=== PATIENT | female | born 1985 | race Caucasian/White ===

== ENCOUNTER 2017-08-18 20:50 | Emergency (ER) | payer MEDICAID ==
[2017-08-19 01:38] LABS: URINE PH (Dip) POC 5.5 (5.0-8.5)
[2017-08-19 01:38] LABS: URINE BLOOD (Dip) POC Trace-intact (NEGATIVE); URINE GLUCOSE (Dip) POC Negative (NEGATIVE); URINE KETONES (Dip) POC Negative (NEGATIVE); URINE LEUKOCYTE EST (Dip) POC Negative (NEGATIVE); URINE NITRITE (Dip) POC Negative (NEGATIVE); URINE TOTAL PROTEIN POC Negative (NEGATIVE)
[2017-08-19] MEDS: KETOROLAC 15 MG INJ IM (01:40)
[2017-08-19] MEDS: PANTOPRAZOLE (EC) 40 MG TAB PO (01:41)
[2017-08-19] MEDS: LIDOCAINE/MYLANTA 40 ML BTL PO (01:42)
[2017-08-19] MEDS: AL HYDROX/MG HYDROX/SIMETH 30 ML CUP PO (01:50)
[2017-08-19] MEDS: ACETAMINOPHEN 500 MG TAB PO (01:50)
== END 2017-08-19 03:15 | disposition home or self-care (01) ==
LOC: FTE 20:50
DX: R10.13 Epigastric pain (principal); M54.6 Pain in thoracic spine
CPT/HCPCS: 81003; 99283

== ENCOUNTER 2017-11-26 09:52 | Outpatient (CLI) | payer MEDICAID | END 2017-11-26 18:59 | disposition home or self-care (01) | LOC: OBT 09:52 → L-D 10:12 → OBT 18:59 | DX: O26.892 Other specified pregnancy related conditions, second trimester (principal); R10.2 Pelvic and perineal pain; Z3A.26 26 weeks gestation of pregnancy | CPT/HCPCS: 76817; 76818 ==

== ENCOUNTER 2018-02-17 10:55 | Inpatient (IN) | payer MEDICAID ==
[2018-02-17] MEDS ORDERED: AMPICILLIN 2 GM/NS (PMX) 100 ML (15:41)
[2018-02-17] MEDS: LACTATED RINGER'S 1,000 ML IV* (15:51)
[2018-02-17 15:52] LABS: ADD MAN DIFF? NO
[2018-02-17] MEDS: AMPICILLIN 2 GM/NS (PMX) 100 ML IV (15:52)
[2018-02-17 15:54] LABS: BASOPHILS % 0.4 % (0.0-2.0); EOSINOPHILS % 0.4 % (0.0-7.0); HEMATOCRIT 38.3 % (37.0-47.0); LYMPHOCYTES # 1.8 10^3/ul (0.8-2.9); LYMPHOCYTES % 16.5 % (15.0-51.0); MEAN CORPUSCULAR HGB CONC 33.9 g/dl (32.0-37.0); MEAN CORPUSCULAR VOLUME 91.4 fl (82.0-101.0); MEAN PLATELET VOLUME 10.2 fl (7.4-10.4); MONOCYTE # 0.6 10^3/ul (0.3-0.9); MONOCYTES % 5.1 % (0.0-11.0); NEUTROPHIL # 8.3 10^3/ul (1.6-7.5); NEUTROPHILS % 76.8 % (39.0-77.0); PLATELET COUNT 264 10^3/UL (140-415); RED BLOOD COUNT 4.19 10^6/ul (4.20-5.40); RED CELL DISTRIBUTION WIDTH 12.4 % (11.5-14.5)
[2018-02-17 15:54] LABS: WHITE BLOOD COUNT 10.8 10^3/ul (4.8-10.8)
[2018-02-17 15:58] LABS: INR 0.85; PROTIME 11.7 Sec (11.9-14.9); PT RATIO 0.9
[2018-02-17 15:59] LABS: PARTIAL THROMBOPLASTIN TIME 27.5 Sec (25.0-35.0)
[2018-02-17] MEDS ORDERED: CARBOPROST 250 MCG INJ IM (16:00)
[2018-02-17] MEDS ORDERED: DINOPROSTONE 10 MG VAG SUPP VAG (16:00)
[2018-02-17] MEDS ORDERED: MINERAL OIL LIGHT 10 ML VIAL TOP (16:00)
[2018-02-17] MEDS ORDERED: BUTORPHANOL 2 MG INJ IV (16:00)
[2018-02-17] MEDS ORDERED: IBUPROFEN 600 MG TAB PO (16:00)
[2018-02-17] MEDS ORDERED: OXYTOCIN 30 UNITS/LR 500 ML IV (16:00)
[2018-02-17] MEDS ORDERED: LIDOCAINE 1% (MPF) 30 ML INJ INJ (16:00)
[2018-02-17 16:46] LABS: HEPATITIS B SURFACE ANTIGEN NEGATIVE (NEGATIVE)
[2018-02-17] MEDS: OXYTOCIN 30 UNITS/LR 500 ML IV (17:19)
[2018-02-17] MEDS ORDERED: FENTAnyl 2MCG/ML-ROPIV 0.2% 100 ML (20:09)
[2018-02-17] MEDS: AMPICILLIN 1 GM/NS (PMX) 50 ML IV (20:25)
[2018-02-17] MEDS: LACTATED RINGER'S 1,000 ML IV (20:35)
[2018-02-17] MEDS ORDERED: NALOXONE (0.4 MG/ML) INJ IV (23:00)
[2018-02-18] MEDS: FENTAnyl 2MCG/ML-ROPIV 0.2% 100 ML BAG EPI (00:11)
[2018-02-18] MEDS: LACTATED RINGER'S 1,000 ML IV* ×4 (00:18→22:13)
[2018-02-18] MEDS: AMPICILLIN 1 GM/NS (PMX) 50 ML IV ×2 (00:19→04:00)
[2018-02-18] MEDS: MISOPROSTOL 200 MCG TAB PR (03:36)
[2018-02-18] MEDS: METHYLERGONOVINE 0.2 MG INJ IM (03:36)
[2018-02-18] MEDS: OXYTOCIN 30 UNITS/LR 500 ML IV ×2 (03:38)
[2018-02-18] MEDS ORDERED: ONDANSETRON 4 MG INJ (03:54)
[2018-02-18] MEDS: ONDANSETRON 4 MG INJ IV (03:59)
[2018-02-18] MEDS ORDERED: MEPERIDINE 25 MG INJ IM (04:07)
[2018-02-18] MEDS: MEPERIDINE 25 MG INJ IV (04:24)
[2018-02-18] MEDS ORDERED: OXYTOCIN 30 UNITS/LR 500 ML IV (06:30)
[2018-02-18] MEDS ORDERED: MISOPROSTOL 200 MCG TAB PR (06:30)
[2018-02-18] MEDS ORDERED: DIBUCAINE 1% 30 GM OINT PR (06:30)
[2018-02-18] MEDS ORDERED: ACETAMINOPHEN 325 MG TAB PO (06:30)
[2018-02-18] MEDS ORDERED: CARBOPROST 250 MCG INJ IM (06:30)
[2018-02-18] MEDS ORDERED: METHYLERGONOVINE 0.2 MG INJ IM (06:30)
[2018-02-18] MEDS: BENZOCAINE 20% 56 ML SPRAY TOP (06:31)
[2018-02-18] MEDS: IBUPROFEN 600 MG TAB PO ×3 (06:31→18:01)
[2018-02-18] MEDS: WITCH HAZEL/GLYCERIN PAD PR (06:31)
[2018-02-18] MEDS: LANOLIN 7 GM TUBE TOP (06:31)
[2018-02-18] MEDS ORDERED: METHYLERGONOVINE 0.2 MG INJ (07:00)
[2018-02-18] MEDS: SENNA/DOCUSATE NA (8.6MG/50MG) TAB PO ×2 (10:07→21:09)
[2018-02-18 16:08] LABS: RAPID PLASMA REAGIN NONREACTIVE (NR)
[2018-02-19] MEDS: IBUPROFEN 600 MG TAB PO ×5 (00:39→23:38)
[2018-02-19] MEDS: CEPHALEXIN 500 MG CAP PO ×7 (00:39→23:38)
[2018-02-19] MEDS: LACTATED RINGER'S 1,000 ML IV* ×3 (06:13→22:13)
[2018-02-19 10:12] LABS: ADD MAN DIFF? NO
[2018-02-19 10:18] LABS: BASOPHILS % 0.3 % (0.0-2.0); EOSINOPHILS # 0.1 10^3/ul (0.0-0.5); EOSINOPHILS % 0.5 % (0.0-7.0); HEMATOCRIT 34.6 % (37.0-47.0); HEMOGLOBIN 11.9 g/dl (12.0-16.0); LYMPHOCYTES # 1.9 10^3/ul (0.8-2.9); LYMPHOCYTES % 17.7 % (15.0-51.0); MEAN CORPUSCULAR HEMOGLOBIN 31.2 pg (29.0-33.0); MEAN CORPUSCULAR HGB CONC 34.4 g/dl (32.0-37.0); MEAN CORPUSCULAR VOLUME 90.6 fl (82.0-101.0); MEAN PLATELET VOLUME 10.2 fl (7.4-10.4); MONOCYTE # 0.4 10^3/ul (0.3-0.9); NEUTROPHIL # 8.2 10^3/ul (1.6-7.5); NEUTROPHILS % 76.5 % (39.0-77.0); PLATELET COUNT 264 10^3/UL (140-415); RED BLOOD COUNT 3.82 10^6/ul (4.20-5.40); RED CELL DISTRIBUTION WIDTH 12.2 % (11.5-14.5)
[2018-02-19 10:18] LABS: WHITE BLOOD COUNT 10.7 10^3/ul (4.8-10.8)
[2018-02-19] MEDS: SENNA/DOCUSATE NA (8.6MG/50MG) TAB PO ×2 (10:28→20:44)
[2018-02-19] MEDS: HYDROCODONE/APAP (5/325) TAB PO (19:53)
[2018-02-20] MEDS: IBUPROFEN 600 MG TAB PO ×2 (05:50→11:37)
[2018-02-20] MEDS: CEPHALEXIN 500 MG CAP PO ×2 (05:50→11:37)
[2018-02-20] MEDS: LACTATED RINGER'S 1,000 ML IV* (06:13)
[2018-02-20] MEDS: SENNA/DOCUSATE NA (8.6MG/50MG) TAB PO (09:54)
[2018-02-20] MEDS: DIPHTH/TET/ACEL PERTUSS (ADULT) 0.5 ML VIAL IM* (09:54)
== END 2018-02-20 17:09 | disposition home or self-care (01) | DRG 775 ==
LOC: OBT 10:55 → PP1 02-18 05:50 → L-D 10:55 → OBT 14:35 → L-D 14:35
PROVIDERS: Obstetrics & Gynecology
PROC: 10E0XZZ Delivery of Products of Conception, External Approach (ICD-10-PCS; principal; 2018-02-18)
DX: O76 Abnormality in fetal heart rate and rhythm complicating labor and delivery (principal); Z68.41 Body mass index [BMI] 40.0-44.9, adult; Z37.0 Single live birth; O36.63X0 Maternal care for excessive fetal growth, third trimester, not applicable or unspecified; Z3A.38 38 weeks gestation of pregnancy; O69.81X0 Labor and delivery complicated by cord around neck, without compression, not applicable or unspecified; O99.214 Obesity complicating childbirth; E66.01 Morbid (severe) obesity due to excess calories
CPT/HCPCS: 76818; 85025; 85610; 85730; 86592; 86885; 86900; 86901; 87340; 99464